=== PATIENT | female | born 1975 | race Caucasian/White ===

== ENCOUNTER → 2023-10-23 14:41 | Outpatient (REF) | payer BC, SELFPAY | LOC: HWRAD 14:41 | PROVIDERS: ATTENDING PHYSICIAN Surgery; FAMILY PHYSICIAN Internal Medicine | DX: Z98.84 Bariatric surgery status (principal) | CPT/HCPCS: 74177; Q9967 ==

== ENCOUNTER → 2023-11-02 09:55 | Outpatient (REF) | payer BC, SELFPAY | LOC: RAD 09:55 | PROVIDERS: ATTENDING PHYSICIAN Surgery; FAMILY PHYSICIAN Internal Medicine | DX: Z98.84 Bariatric surgery status (principal) | CPT/HCPCS: 74246; 74248 ==

== ENCOUNTER → 2025-01-06 12:59 | Outpatient (REF) | payer BC, SELFPAY | LOC: RAD 12:59 | PROVIDERS: ATTENDING PHYSICIAN Student in an Organized Health Care Education/Training Program; FAMILY PHYSICIAN Internal Medicine | DX: R59.0 Localized enlarged lymph nodes (principal) | CPT/HCPCS: 74177; Q9967 ==

== ENCOUNTER 2025-02-03 06:21 | Day surgery (SDC) | payer BC, SELFPAY | END 2025-02-03 12:41 | disposition home or self-care (01) | LOC: GI 06:21 | PROVIDERS: ATTENDING PHYSICIAN Student in an Organized Health Care Education/Training Program | DX: Z12.11 Encounter for screening for malignant neoplasm of colon (principal); K62.5 Hemorrhage of anus and rectum; K64.0 First degree hemorrhoids; R10.31 Right lower quadrant pain; K64.4 Residual hemorrhoidal skin tags; R93.3 Abnormal findings on diagnostic imaging of other parts of digestive tract; R12 Heartburn; K44.9 Diaphragmatic hernia without obstruction or gangrene; K63.89 Other specified diseases of intestine; D12.3 Benign neoplasm of transverse colon; D12.2 Benign neoplasm of ascending colon; K29.50 Unspecified chronic gastritis without bleeding; Z80.0 Family history of malignant neoplasm of digestive organs; Z98.0 Intestinal bypass and anastomosis status | CPT/HCPCS: 45385; 45380; 43239; 88305; 88342 ==

== ENCOUNTER 2025-05-13 08:33 | Emergency (ER) | payer BC, SELFPAY ==
[2025-05-13 08:39] VITALS: BP 144/73
--- NOTE | 2025-05-13 09:18 | ED.GENMED ---
History of Present Illness
General
Chief Complaint: Cardiac Symptoms
Time Seen by Provider: 05/13/25 09:02
History of Present Illness
History of Present Illness:
50-year-old female with history of GERD presents to the emergency department for evaluation of chest discomfort radiating to the upper back and left shoulder for the past 3 to 4 days. Describes it as a 'acid reflux' feeling however typically her
acid reflux does not persist for this duration. No postprandial worsening however does worsen when supine. No exertional or pleuritic nature. Denies associated fever, chills, sweats, or shortness of breath. Denies any leg swelling. No history
of cardiovascular risk factors, no family history of early coronary disease, non-smoker.
Review of Systems
Review of Systems
Allergies reviewed?: Yes
All Other Systems: ROS reviewed and negative except as documented in HPI and ROS
Phy Exam
Physical Exam
Physical Exam:
GEN: Well appearing, NAD, WDWN
HEENT: Oral mucosa moist, no scleral icterus
Cardiac: Regular rate and rhythm, no murmurs
Lung: No respiratory distress, no tachypnea, lungs clear to auscultation bilaterally
MSK: No gross deformity or injuries
Skin: Good color, no pallor or jaundice, no rashes
Neuro: AO x3, moves all extremities freely
Psych: Calm, cooperative
Course
Orders/Labs/Results
Orders:
Orders
05/13/25 08:41
EKG [Electrocardiogram (*1)] Urgent
Reason for Study: Other
Other Reason for Exam: epigastric abd pain.
EKG- Treatment ONCE
05/13/25 10:28
Complete Blood Count/With Diff Urgent
Comprehensive Metabolic Panel Urgent
Troponin I Urgent
05/13/25 11:43
EKG- Treatment ONCE
05/13/25 12:30
Electrocardiogram (*1) Routine
Reason for Study: Chest Pain
05/13/25 12:54
Troponin I Routine
Abnormal Lab Results
05/13/25
10:28
RBC 4.19 L 10^6/uL
(4.20-5.40)
MCH 31.3 H pg
(27.0-31.0)
MPV 11.0 H fL
(7.4-10.4)
Chloride 111 H mmol/L
(98-107)
Total Protein 6.2 L g/dl
(6.3-8.2)
05/13/25 10:28
05/13/25 10:28
Vital Signs
Initial and Last Documented VS:
Initial Vital Signs
Temp Pulse Resp BP Pulse Ox
98.4 F 71 18 144/73 98
05/13/25 08:39 05/13/25 08:39 05/13/25 08:39 05/13/25 08:39 05/13/25 08:39
Last Documented Vital Signs
Temp Pulse Resp BP Pulse Ox
98.4 F 59 12 118/71 97
05/13/25 08:39 05/13/25 13:45 05/13/25 13:45 05/13/25 13:00 05/13/25 13:45
MDM/Problems Addressed
MDM/Problems Addressed:
Patient's initial troponin was detectable but send repeat troponin was obtained which was relatively flat with no discernible change. Her symptoms are most likely gastrointestinal particular given that she has been recently initiated on a GLP-1 as
of 3 months ago. Nevertheless with the detectable troponins we will refer her to cardiology as an outpatient. Discussed supportive care with increased PPI and H2 blockers at home pending cardiology follow-up
Comment
Comment:
EKG independently interpreted by me shows a normal sinus rhythm with no ST changes concerning for ischemia, comparable to past EKG tracing with no variability
*Pulse Oximetry
SaO2: 98
Oxygen Mode of Delivery: Room air
Patient hypoxic: no
*Critical Care Note
Total Time (30-74mins, 75-104mins- exclusive of procedures): Not Applicable
ED Attending Note
-
Portions of this chart may have been created with voice recognition software.� Occasional wrong word or��sound alike� substitutions may have occurred due to the inherent limitations of voice recognition software.
Discharge Plan
Departure
Patient Disposition: Home (Routine Discharge)
Date of Disposition: 05/13/25
Time of Disposition: 13:45
Patient with high blood pressure during this ER visit?: No
Discharge Problem:
Atypical chest pain
Instructions: Chest Pain CBC Follow Up
Referrals:
Silvino Altamirano MD [Family Provider]
Activity Restrictions/Additional Instructions:
Increase your Nexium to twice daily for the next week
Try over the counter Pepcid (famotidine) twice daily as well for 1 week
Interventions
Interventions:
*Risk Screen - Suicide Last Done: 05/13/25 08:39
*General Assessment Last Done: 05/13/25 08:39
*Neglect/Abuse Screening Last Done: 05/13/25 08:39
*ED- Fall Risk Assessment Last Done: 05/13/25 10:33
*ED COVID-19 Vaccine History Last Done: 05/13/25 10:33
*ED Influenza Vaccine History Last Done: 05/13/25 10:33
*Nursing Disposition Last Done: 05/13/25 13:55
ED- Pulmonary Assessment Last Done: 05/13/25 12:11
ED- Cardiac Assessment Last Done: 05/13/25 12:11
Discharge Date and Time
Discharge Date/Time: 05/13/25 13:55
Print Language: FRISIAN
[2025-05-13 10:30] VITALS: BP 123/69
[2025-05-13 10:36] VITALS: BP 123/69
[2025-05-13 10:45] LABS: Hematocrit 39.6 % (37.0-47.0); Hemoglobin 13.1 g/dL (12.0-16.0); Mean Corp Hgb Conc. 33.1 g/dL (33.0-37.0); Mean Corpuscular Volume 94.5 fL (81.0-99.0); Nucleated Red Blood Cells % 0 %; Platelet Count 185 10^3/uL (130-400); Red Cell Dist. Width 12.6 % (11.5-14.5)
[2025-05-13 11:00] VITALS: BP 116/70
[2025-05-13 11:01] LABS: ALT (SGPT) 22 U/L (0-35); AST (SGOT) 24 U/L (14-36); Albumin 4.0 g/dl (3.5-5.0); Alkaline Phosphatase 60 U/L (38-126); Blood Urea Nitrogen 16 mg/dl (7-17); Calcium 8.7 mg/dl (8.4-10.2); Carbon Dioxide 24 mmol/L (22-30); Chloride 111 mmol/L (98-107); Glucose 84 mg/dl (70-99); Potassium 4.6 mmol/L (3.5-5.1); Sodium 139 mmol/L (135-145); Total Protein 6.2 g/dl (6.3-8.2); eGFR > 60.00
[2025-05-13 11:12] LABS: Troponin I 0.021 ng/ml
--- NOTE | 2025-05-13 11:34 | EDRN ---
Benjamín Caicedo PA in room w/ pt at this time.
[2025-05-13 12:00] VITALS: BP 116/81
--- NOTE | 2025-05-13 12:16 | EDRN ---
Pt OOB to BR and franco at this time.
--- NOTE | 2025-05-13 12:56 | EDRN ---
Repeat troponin and EKG done w/ blood drawn and sent to lab.
[2025-05-13 13:00] VITALS: BP 118/71
[2025-05-13 13:41] LABS: Troponin I 0.024 ng/ml
--- NOTE | 2025-05-13 13:54 | EDRN ---
Benjamín Gomez PA in to see pt and discontinued IV and discharged pt.
== END 2025-05-13 13:55 | disposition home or self-care (01) ==
LOC: EMR 08:33
PROVIDERS: Physician Assistant; EMERGENCY PHYSICIAN Student in an Organized Health Care Education/Training Program; FAMILY PHYSICIAN Internal Medicine
DX: R07.89 Other chest pain (principal); K21.9 Gastro-esophageal reflux disease without esophagitis
CPT/HCPCS: 99284; 80053; 84484; 85025; 93005

== ENCOUNTER → 2025-06-02 12:40 | Outpatient (REF) | payer BC, SELFPAY | LOC: RCS 12:40 | PROVIDERS: ATTENDING PHYSICIAN Internal Medicine Cardiovascular Disease; FAMILY PHYSICIAN Internal Medicine | DX: R07.2 Precordial pain (principal) | CPT/HCPCS: 93017 ==

== ENCOUNTER → 2025-06-18 09:13 | Outpatient (REF) | payer BC, SELFPAY | LOC: RCS 09:13 | PROVIDERS: ATTENDING PHYSICIAN Internal Medicine Cardiovascular Disease; FAMILY PHYSICIAN Internal Medicine | DX: R07.2 Precordial pain (principal) | CPT/HCPCS: 93306 ==